=== PATIENT | male | born 1955 | race Caucasian/White ===

== ENCOUNTER 2017-01-05 10:27 | Inpatient (IN) | payer OTHER ==
[~2017-01-05] VITALS: Ht 162.6 cm; Wt 50.8 kg
[2017-01-05 10:38] VITALS: BP 129/79
[2017-01-05] MEDS ORDERED: HEROIN (10:45)
[2017-01-05] MEDS ORDERED: DIAZ5TAB6 PO (10:45)
--- NOTE | 2017-01-05 10:49 | NUR ---
CONTACT ISOLATION R/T DRAINING ABSCESS. AIRBONE IS POSSIBLE TB EXPOSURE.
[2017-01-05] MEDS ORDERED: LIDOCAINE 1% 500 MG/50 ML VIAL INJ ONE (11:05)
--- NOTE | 2017-01-05 11:13 | NUR ---
Patient ambulated to bed 4. RN evaluating patient at bedside.
[2017-01-05] MEDS ORDERED: VANCOMYCIN 1,000 MG in DEXTROSE 5% 250 ML IV ONE (11:20)
--- NOTE | 2017-01-05 11:21 | NUR ---
61/M TO ED WITH C/O LEFT SHOULDER ABSCESS X3 WEEKS S/P INJECTING HEROIN. PAIN 10/. ABSCESS IS RED AND SWOLLEN. LUNGS CLEAR BILAT. HR EVEN AND REGULAR. AAOX4. VSS. NO SIGNS OF DISTRESS.
[2017-01-05] MEDS ORDERED: ONDANSETRON 4 MG/2 ML VIAL IVP ONE (11:40)
[2017-01-05] MEDS ORDERED: HYDROmorphone PFS 2 MG/ML SYR IVP ONE ×4 (11:40→13:40)
[2017-01-05 11:45] LABS: HEMATOCRIT 47.9 % (36-52); HEMOGLOBIN 15.3 g/dL (12.0-18.0); MEAN CORPUSCULAR HEMOGLOBIN 28 pg (27-31); MEAN CORPUSCULAR HGB CONC 32 g/dL (33-37); MEAN CORPUSCULAR VOLUME 88 fL (80-94); PLATELET COUNT (AUTO) 419 K/uL (140-450); RED BLOOD CELL COUNT(AUTO) 5.46 MIL/uL (4.20-6.10); RED CELL DISTRIBUTION WIDTH 13.8 % (11.6-13.7); WHITE BLOOD COUNT (AUTO) 11.8 K/uL (4.8-10.8)
[2017-01-05] MEDS ORDERED: cefTRIAXone 1,000 MG VIAL ONE (11:47)
[2017-01-05 12:08] LABS: BAND % (MANUAL) 4 % (0-8); LYMPHOCYTES % (MANUAL) 12 % (20-46); MONOCYTES % (MANUAL) 5 % (5-12); NEUTROPHILS % (MANUAL) 79 (43-65)
[2017-01-05 12:09] LABS: PLATELET ESTIMATE ADEQUATE
[2017-01-05 12:14] LABS: LACTIC ACID 0.9 mmol/L (0.4-2.0)
[2017-01-05 12:27] LABS: ALBUMIN 3.1 g/dL (3.4-5.0); ANION GAP 11.2 (8-16); CARBON DIOXIDE 31.8 mmol/L (21-32); CREATININE 0.7 mg/dL (0.6-1.3); TOTAL BILIRUBIN 0.7 mg/dL (0.0-1.0); TOTAL PROTEIN, SERUM 8.8 g/dL (6.4-8.2)
[2017-01-05] MEDS ORDERED: VANCOMYCIN 1,000 MG VIAL ONE (13:12)
--- NOTE | 2017-01-05 13:20 | NUR ---
Patient appears to be resting comfortably in bed. Vital Signs within normal limits. Respirations even and unlabored.
[2017-01-05] MEDS: NACL 0.9% 1,000 ML IV SCH ×2 (13:29→23:37)
[2017-01-05] MEDS ORDERED: MORPHINE SULFATE 4 MG/ML SYR IVP PRN (13:30)
[2017-01-05] MEDS ORDERED: VANCOMYCIN PER PHARMACY MC PRN (13:30)
[2017-01-05] MEDS ORDERED: ONDANSETRON 4 MG/2 ML VIAL IVP PRN (13:30)
[2017-01-05] MEDS ORDERED: LORazepam 2 MG/ML VIAL IVP PRN (13:30)
[2017-01-05] MEDS ORDERED: MORPHINE SULFATE 2 MG/ML SYR IVP PRN (13:30)
[2017-01-05] MEDS ORDERED: ALBUTEROL 0.083% 2.5 MG/3 ML NEBU IH PRN (13:30)
[2017-01-05] MEDS ORDERED: ACETAMINOPHEN 325 MG TAB PO PRN (13:30)
[2017-01-05] MEDS ORDERED: IPRATROPIUM 0.02% 0.5 MG/2.5 ML NEBU INH PRN (13:30)
[2017-01-05] MEDS ORDERED: HYDROcodone/APAP 5/325 MG 1 TAB TAB PO PRN ×2 (13:30)
[2017-01-05 14:11] LABS: AMPHETAMINE, URINE POS. ng/ml (NEG <=1000); BARBITURATE, URINE NEG. ng/ml (NEG <=200); BENZODIAZEPINE, URINE POS. ng/mL (NEG <=200); CANNABINOID, URINE NEG. ng/mL (NEG <=50); COCAINE, URINE NEG. ng/mL (NEG <=300); OPIATE, URINE POS. ng/mL (NEG <=2000); PHENCYCLIDINE SCREEN,URINE NEG. ng/mL (NEG <=25)
--- NOTE | 2017-01-05 14:33 | NUR ---
Patient appears to be resting comfortably in bed. Vital Signs within normal limits. Respirations even and unlabored.
--- NOTE | 2017-01-05 14:48 | NUR ---
Patient will be admitted to care of DR SOTO. Admited to MS. Will go to room 119B. Belongings list completed. Report to MARNIE.
--- NOTE | 2017-01-05 15:16 | NUR ---
RECEIVED PT FROM ER. PT WAS IN BR AND AMB WITH STEADY GAIT TO WASH HIS HAND. PT IS AAOX4 AND SHOWS NO S/S OF DISTRESS ON ROOM AIR. PT HAS A NOTED DRESSING ON THE LEFT UPPER ARM. PT STATES HE HAS HAD IS FROM 3 WEEKS. PT STATES HE IS AN IVDA AND HAS TAKEN HEROIN, VALIUM, AND SPEED 01/04/17. PT HAS A R EJ IV WITH IVF RUNNING. PT STATES HE HAS NO PAIN, SOB, OR CHEST PAIN. PT HAS CLOTHES AND SHOES ON AND WANTS TO TAKE THEM OFF ONCE HE SHOWERS. PT BED IS LOWERED WITH CALL LIGHT WITHIN REACH.
[2017-01-05] MEDS ORDERED: CLINDAMYCIN 300 MG in DEXTROSE 5% 50 ML IV SCH (17:00)
--- NOTE | 2017-01-05 18:00 | NUR ---
RECEIVED CALL FROM LAB TO NOTIFY DR OF NEEDED LAB ORDER CHANGE. WILL NOTIFY
--- NOTE | 2017-01-05 18:45 | NUR ---
ADMINISTERED SCHEDULED MEDICATIONS. PT SHOWS NO S/S OF DISTRESS ON ROOM AIR. PT IS SITTING COMFORTABLY IN BED WITH CALL LIGHT WITHIN REACH.
--- NOTE | 2017-01-05 18:50 | NUR ---
PT ATE 90% OF HIS DINNER. PT TOLERATED WELL AND SHOWS NO S/S OF DISTRESS AT THIS TIME.
--- NOTE | 2017-01-05 19:25 | NUR ---
GAVE PT REPORT AT BEDSIDE. PT ENDORSED IN STABLE CONDITION.
--- NOTE | 2017-01-05 19:30 | NUR ---
RECEIVED REPORT FROM MARNIE CLARK AT BEDSIDE. PT IS ALERT AWAKE ORIENTED X4. INITIAL ASSESSMENT DONE. NO S/S OF RESPIRATORY DISTRESS OR SOB NOTED. NO C/O PAIN OR ANY DISCOMFORT AT THIS TIME. PLAN OF CARE REVIEWED TO PT AND VERBALIZED UNDERSTANDING. CALL LIGHT WITHIN REACH. WILL CONTINUE TO MONITOR.
[2017-01-05 20:30] VITALS: BP 123/79
[2017-01-05] MEDS ORDERED: VANCOMYCIN 750 MG in DEXTROSE 5% 250 ML IV SCH (22:00)
[2017-01-06] VITALS: BP 128/74
--- NOTE | 2017-01-06 00:20 | NUR ---
PT IS SLEEPING RIGHT NOW BUT EASILY AROUSABLE. NO S/S OF ANY DISCOMFORT AT THIS TIME. ALL NEEDS ARE ATTENDED. CALL LIGHT WITHIN REACH. WILL CONTINUE TO MONITOR.
--- NOTE | 2017-01-06 03:30 | NUR ---
PT LEFT AMA BECAUSE HE DOESN'T WANT HIS BELONGINGS TO BE SEARCHED BY SECURITY AFTER A STAFF DISCOVER THAT PT SMOKED IN THE BATHROOM. CHARGE NURSE ABIEL NOTIFIED. VICE PRESIDENT OF ADVERTISING FRANKLIN NOTIFIED.
--- NOTE | 2017-01-06 03:35 | NUR ---
CALLED DR. KUMARI AND NOTIFIED THAT PT LEFT AMA DESPITE EXPLAINING THE RISKS AND BENEFITS OF IT AND SAID THAT'S FINE. PT LEFT THE UNIT UNIT IN STABLE CONDITION AMBULATORY BY HIMSELF.
[2017-01-06] MEDS ORDERED: ENOXAPARIN 40 MG/0.4 ML SYR SUBQ SCH (09:00)
--- NOTE | 2017-01-06 11:42 | NUR ---
FAXED CLINICAL INFORMATION TO [facility] [phone] ATTN KAY PHONE [phone]
== END 2017-01-06 03:25 | disposition left against medical advice (07) | DRG 383 ==
LOC: MED 10:27 → MTU 13:29
PROVIDERS: ADMIT Hospitalist; ATTEND Hospitalist
PROC: 0X990ZZ Drainage of Left Upper Arm, Open Approach (ICD-10-PCS; principal; 2017-01-05)
DX: L02.414 Cutaneous abscess of left upper limb (principal); F11.20 Opioid dependence, uncomplicated; I10 Essential (primary) hypertension; Z59.0 Homelessness; F41.9 Anxiety disorder, unspecified; F17.210 Nicotine dependence, cigarettes, uncomplicated; J44.9 Chronic obstructive pulmonary disease, unspecified; Z90.49 Acquired absence of other specified parts of digestive tract
CPT/HCPCS: 10061; 36415; 80053; 80305; 83605; 85025; 85651; 86140; 87040; 87070; 87081; 87186; 96365; 96366; 96367; 96375; 96376; 99285; J0696; J1170; J2001; J2405; J3370; J3490; J7030; J7060

== ENCOUNTER 2018-05-21 07:47 | Inpatient (IN) | payer OTHER ==
[~2018-05-21] VITALS: Ht 162.6 cm; Wt 54.0 kg
[~2018-05-21 07:47] MED LIST: DIAZ5TAB6 PO; HEROIN
--- NOTE | 2018-05-21 07:47 | NUR ---
PT BIBA BLS TO BED 4
[2018-05-21 07:50] VITALS: BP 164/100
--- NOTE | 2018-05-21 07:50 | NUR ---
62Y/M BIBA C/O SEIZURES. PER PATIENT DONT REMEMBER INCIDENT. WITNESSED SEIZURE FROM GAS STATION. NO INCONTINENCE.NECK PAIN/C-SPINE APPLIED FIELD. BS 106 FIELD. LAST HEROIN USE YESTERDAY. PT IS ONMONITOR AT THIS TIME; SEIZURE PADS APPLIED TO PT BED. BED DOWN. BEDRAIL UP X 1; ER MD AWARE AND NOTIFIED OF PT STATUS. WILL CONT TO MONITOR PT. HX:DRUG USE, RX; DENIES
--- NOTE | 2018-05-21 08:18 | NUR ---
LAB AT PT BEDSIDE AT THIS TIME
[2018-05-21 08:29] LABS: HEMATOCRIT 51.7 % (36-52); HEMOGLOBIN 17.1 g/dL (12.0-18.0); MEAN CORPUSCULAR HEMOGLOBIN 30 pg (27-31); MEAN CORPUSCULAR HGB CONC 33 g/dL (33-37); MEAN CORPUSCULAR VOLUME 90.7 fL (80-94); PLATELET COUNT (AUTO) 244 K/uL (140-450); RED CELL DISTRIBUTION WIDTH 14.2 % (11.6-13.7); WHITE BLOOD COUNT (AUTO) 7.2 K/uL (4.8-10.8)
--- NOTE | 2018-05-21 08:31 | NUR ---
MULTIPLE ATTEMPTS TO INSERT IV X2 RN'S---PT STATED OKAY TO TRY-- TOLERATED WITH ACCEPTABLE LEVEL OF DISCOMFORT PER PT-STATED, "IT HURTS BUT IT'S OKAY RIGHT NOW". --- NOTIFIED UNSUCCESSFUL
--- NOTE | 2018-05-21 08:35 | NUR ---
PT TAKEN TO DT VIA EYAL
[2018-05-21 08:44] LABS: CARBON DIOXIDE 28.7 mmol/L (21-32); CHLORIDE 95 mmol/L (98-107); CREATININE 0.8 mg/dL (0.7-1.3); GFR ARICAN-AMERICAN 127 mL/min (>90); GLUCOSE 107 mg/dL (74-106); POTASSIUM 3.7 mmol/L (3.5-5.1); SODIUM SERUM 135 mmol/L (136-145); UREA NITROGEN, BLOOD 13 mg/dL (7-18)
--- NOTE | 2018-05-21 08:45 | NUR ---
PT BACK FROM CT
[2018-05-21 08:46] LABS: LYMPHOCYTES % (MANUAL) 12 % (20-46); MONOCYTES % (MANUAL) 6 % (5-12)
[2018-05-21 08:47] LABS: BASOPHILS % (MANUAL) 0 % (0-2); EOSINOPHILS % (MANUAL) 0 % (0-4)
[2018-05-21 08:50] LABS: ALBUMIN 4.3 g/dL (3.4-5.0); ASPARTATE AMINOTRANSFERASE 37 U/L (15-37); TOTAL BILIRUBIN 0.7 mg/dL (0.0-1.0)
[2018-05-21 08:52] LABS: ACETAMINOPHEN < 0.5 ug/ml (10-30); SALICYLATE < 2.8 mg/dL (2.8-20.0)
[2018-05-21] MEDS ORDERED: LORazepam 2 MG/ML VIAL IM ONE (08:55)
--- NOTE | 2018-05-21 08:59 | NUR ---
WITNESSED SEIZURE ACTIVITY TONIC/CLONIC APPROX. 30SECONDS. SUCTIONED PATIENT,O2 4LNC APPLIED.SEIZURE PRECAUTION,TURNED TO SIDES,HEAD ELEVATED. NO INJURY NOTED. DR. VELA ORDERED ATIVAN 1MG. IM TO BE ADMINISTERED. CONTINUE TO MONITOR.
[2018-05-21] MEDS ORDERED: LORazepam 2 MG/ML VIAL ONE (09:02)
--- NOTE | 2018-05-21 09:12 | NUR ---
Patient being evaluated by physician at bedside.
[2018-05-21] MEDS ORDERED: KETOROLAC 60 MG/2 ML VIAL IM ONE (09:20)
[2018-05-21] MEDS ORDERED: KETOROLAC 30 MG/ML VIAL IVP ONE (09:40)
[2018-05-21 10:08] LABS: APPEARANCE,URINE HAZY (CLEAR); BILIRUBIN,URINE NEGATIVE (NEGATIVE); BLOOD, URINE 1+ (NEGATIVE); COLOR,URINE YELLOW (YELLOW); LEUKOCYTE ESTERASE ,URINE NEGATIVE (NEGATIVE); NITRITE, URINE NEGATIVE (NEGATIVE); UGLUCOSE NEGATIVE (NEGATIVE)
[2018-05-21 10:14] LABS: BARBITURATE, URINE NEG. ng/ml (NEG <=200); BENZODIAZEPINE, URINE NEG. ng/mL (NEG <=200); CANNABINOID, URINE POS. ng/mL (NEG <=50); COCAINE, URINE NEG. ng/mL (NEG <=300); OPIATE, URINE POS. ng/mL (NEG <=2000); PHENCYCLIDINE SCREEN,URINE NEG. ng/mL (NEG <=25)
[2018-05-21 10:25] LABS: RBC,URINE 0-5 (RARE) /HPF (0-5); URINE AMORPHOUS URATE 1+ /HPF (None Seen); WBC,URINE 0-5 (RARE) /HPF (0-5)
[2018-05-21] MEDS ORDERED: LORazepam 2 MG/ML VIAL IVP PRN (11:00)
[2018-05-21] MEDS ORDERED: ACETAMINOPHEN 325 MG TAB PO PRN (11:00)
--- NOTE | 2018-05-21 11:15 | NUR ---
Patient will be admitted to care of dr sanders. Admited to tele floor. Will go to room 125-b. Belongings list completed. Report to barbie ambriz.
--- NOTE | 2018-05-21 11:22 | NUR ---
1113 PT TAKEN TO THE FLOOR BY AMBER BEEBE AND EMT DORIAN
[2018-05-21 11:25] VITALS: BP 124/82
--- NOTE | 2018-05-21 11:25 | NUR ---
PATIENT ARRIVED ON MST UNIT FROM ER VIA BED/GURNEY. ABLE TO AMBULATE FROM ER BED TO MST BED. AAOX3, CALM, COOPERATIVE, SKIN COLOR APPROPRIATE TO ETHNICITY, WARM TO TOUCH. SKIN IS INTACT. IV SITE INTACT, PATENT, AND ON SALINE LOCK. ABDOMEN SOFT, NON-DISTENDED. LUNGS CTA ON ALL LOBES. RESPIRATIONS EVEN, UNLABORED, ON ROOM AIR. ORIENTED PATIENT TO ROOM AND CALL LIGHT. REVIEWED PLAN OF CARE WITH PATIENT. PATIENT VERBALIZED UNDERSTANDING. SAFETY MEASURES IN PLACE, SEIZURES PRECAUTIONS IN PLACE. CALL LIGHT WITHIN REACH. WILL CONTINUE TO MONITOR.
[2018-05-21] MEDS ORDERED: INFLUENZA VIRUS VACCINE QUAD 0.5 ML SYR IMVAC PRN (14:40)
[2018-05-21 16:00] VITALS: BP 119/60
[2018-05-21] MEDS ORDERED: KETOROLAC 15 MG/ML VIAL IVP PRN (16:35)
--- NOTE | 2018-05-21 16:35 | NUR ---
CALLED DR SPIVEY, PT C/O ABD PAIN AND STATED HE THINK IT'S WITHDRAW FROM HEROIN 2 DAYS AGO. ORDERED TORADOL 15MG IVP.
--- NOTE | 2018-05-21 18:50 | NUR ---
SPOKE WITH DR SALCEDO, REPORTED VENTRICULAR ESCAPE BEAT ON TELE MONITOR. MD ORDERED MG AND PHOS LAB, IVF NS AT 75ML/HR.
--- NOTE | 2018-05-21 19:30 | NUR ---
ENDORSED PT TO IAP DISPLAYS ANALYST RN. PT IN STABLE CONDITION.
--- NOTE | 2018-05-21 19:31 | NUR ---
RECEIVED REPORT FROM DAY SHIFT NURSE NUNU-RN AT BEDSIDE. PT SLEEPING IN BED. AOX4, ON ROOM AIR WITH IV LOCATED ON RIGHT SHOULDER #24G WITH NS RUNNING AT 75ML/HR. SKIN INTACT. DISCUSSED PLAN OF CARE AND PT VERBALIZED UNDERSTANDING. NO S/S OF RESPIRATORY DISTRESS OR DISCOMFORT NOTED AT THIS TIME. BED IN LOWEST POSITION, BED BREAKS ON, BOTH SIDE RAILS UP. ON FALL AND SEIZURE PRECAUTIONS. BED SIDE TABLE AND CALL LIGHT ARE WITHIN REACH. WILL CONTINUE TO MONITOR.
[2018-05-21] MEDS: NACL 0.9% 1,000 ML IV SCH (19:34)
[2018-05-21 20:00] VITALS: BP 123/102
--- NOTE | 2018-05-21 20:00 | NUR ---
VITAL SIGNS TAKEN AND TOLERATED WELL. NO S/S OF RESPIRATORY DISTRESS OR DISCOMFORT NOTED AT THIS TIME. WILL CONTINUE TO MONITOR.
--- NOTE | 2018-05-21 20:18 | NUR ---
PT C/O ABDOMINAL PAIN 04/17. MEDICATED WITH TORADOL. PT TOLERATED WELL. NO S/S OF RESPIRATORY DISTRESS OR DISCOMFORT NOTED AT THIS TIME. WILL CONTINUE TO MONITOR.
--- NOTE | 2018-05-21 22:00 | NUR ---
PT SLEEPING AT THIS TIME. NO S/S OF RESPIRATORY DISTRESS OR DISCOMFORT NOTED AT THIS TIME. WILL CONTINUE TO MONITOR.
[2018-05-22] VITALS: BP 156/81
--- NOTE | 2018-05-22 | NUR ---
VITAL SIGNS TAKEN AND TOLERATED WELL. NO S/S OF RESPIRATORY DISTRESS OR DISCOMFORT NOTED AT THIS TIME. WILL CONTINUE TO MONITOR.
--- NOTE | 2018-05-22 02:00 | NUR ---
PT CONTINUE TO SLEEP. NO S/S OF RESPIRATORY DISTRESS OR DISCOMFORT NOTED AT THIS TIME. WILL CONTINUE TO MONITOR.
[2018-05-22 04:00] VITALS: BP 152/85
--- NOTE | 2018-05-22 04:00 | NUR ---
VITAL SIGNS TAKEN AND TOLERATED WELL. NO S/S OF RESPIRATORY DISTRESS OR DISCOMFORT NOTED AT THIS TIME. WILL CONTINUE TO MONITOR.
--- NOTE | 2018-05-22 06:00 | NUR ---
PT CONTINUES SLEEPING IN BED. NO S/S OF RESPIRATORY DISTRESS OR DISCOMFORT NOTED AT THIS TIME. WILL CONTINUE TO MONITOR.
--- NOTE | 2018-05-22 07:15 | NUR ---
PT REPORT RECEIVED AT BEDSIDE FROM ACCIDENT EXAMINER NURSE. PT IS AWAKE AND ALERT, NO S/S OF DISTRESS NOTED AT THIS TIME. PT IS ON ROOM AT AIR. PT HAS A 24 GAUGE IV ON HIS RIGHT SHOULDER. TELEMETRY ON. PT USES URINAL. CALL LIGHT WITHIN REACH, BED LOW. WILL CONTINUE TO MONITOR.
[2018-05-22 08:00] VITALS: BP 150/73
--- NOTE | 2018-05-22 08:00 | NUR ---
PT VERBALIZING THAT HE WANTS TO LEAVE, PT STATES THAT HE DOES NOT WANT TO BE HERE. PT KEEPS TAKING OFF TELEMETRY LEADS. MD AWARE. PT EDUCATED ON RISKS OF LEAVING AMA. PT VERBALIZED UNDERSTANDING. EDUCATED PT ON HIS NEURO CONSULT.
[2018-05-22] MEDS: NACL 0.9% 1,000 ML IV SCH (08:10)
--- NOTE | 2018-05-22 08:40 | NUR ---
PATIENT HAS BEEN SCREENED AND CATEGORIZED MODERATE NUTRITION RISK. PATIENT WILL BE SEEN WITHIN 3-5 DAYS OF ADMISSION. 05/23/18 05/25/[address]
[2018-05-22] MEDS ORDERED: ENOXAPARIN 30 MG/0.3 ML SYR SUBQ SCH (09:00)
[2018-05-22 09:02] LABS: MAGNESIUM 1.9 mg/dL (1.8-2.4); PHOSPHORUS 3.4 mg/dL (2.5-4.9)
--- NOTE | 2018-05-22 09:30 | NUR ---
PT KEEPS REMOVING THE TELEMETRY BOX, REFUSING TO HAVE IT ON. PT VERBALIZES DESIRE TO LEAVE. STATES "I WANT TO LEAVE"
--- NOTE | 2018-05-22 10:30 | NUR ---
PT LYING IN BED, NO S/S OF DISTRESS NOTED. WILL CONTINUE TO MONITOR.
--- NOTE | 2018-05-22 12:09 | NUR ---
NOTIFIED DR. SPIVEY REGARDING PATIENT ELOPED.
--- NOTE | 2018-05-22 12:12 | NUR ---
PT HAS ELOPED. PT REMOVED HIS IV LINE, CATHETER IS INTACT. PT LEFT HIS HOSPITAL GOWN ON THE BED. SECURITY PAGED. NOTIFIED.
--- NOTE | 2018-05-23 07:32 | NUR ---
LATE ENTRY ADMISSION CHART REVIEW DONE ON 05/22/18 PATIENT ELOPED. FAXED FACE SHEET AND H7P TO [facility]: 05/23/18 at 0734 by Tiarra Conroy CM [place]. FAXED FACE SHEET AND H&P TO [place] [phone]
== END 2018-05-22 11:45 | disposition left against medical advice (07) | DRG 53 ==
LOC: MED 07:47 → MTU 11:12
PROVIDERS: ADMIT Internal Medicine; ATTEND Internal Medicine
DX: R56.9 Unspecified convulsions (principal); F11.20 Opioid dependence, uncomplicated; F17.200 Nicotine dependence, unspecified, uncomplicated; F19.10 Other psychoactive substance abuse, uncomplicated; F15.10 Other stimulant abuse, uncomplicated; F12.10 Cannabis abuse, uncomplicated; Z90.49 Acquired absence of other specified parts of digestive tract; Z59.0 Homelessness
CPT/HCPCS: 36415; 70450; 71045; 72125; 80053; 80305; 81001; 82550; 82553; 83735; 84100; 84484; 85025; 87081; 93005; 95816; 96372; 96374; 99285; G0480; G0482; J1650; J1885; J2060; J7030